=== PATIENT | female | born 1935 | race Caucasian/White ===

== ENCOUNTER 2017-08-01 09:26 | Observation (INO) ==
[2017-08-01] MEDS ORDERED: FUROSEMIDE 40 MG/4 ML VIAL IV STA (10:45)
[2017-08-01 11:01] LABS: Basophils % 0.4 % (0.0-0.8); Eosinophils # 0.3 10*3/uL (0.0-0.87); Eosinophils % 2.5 % (0.00-10.9); Hematocrit 39.1 VOL% (35.7-47.0); Hemoglobin 12.4 GM/DL (12.0-16.0); Immature Granulocytes % 0.5 %; Immature Granulocytes Absolute 0.05 #; Lymphocytes # 1.7 10*3/uL (1.4-4.0); Lymphocytes % 17.1 % (21.3-54.2); Mean Corpuscular HGB Conc 31.7 GM/DL (32-36); Mean Corpuscular Hemoglobin 25 PG (27-34); Mean Corpuscular Volume 79.5 FL (87-102); Mean Platelet Volume 11.7 FL (9.6-12.0); Monocytes # 0.6 10*3/uL (0.11-0.8); Monocytes % 5.6 % (1.7-12.7); Neutrophils # 7.5 10*3/uL (1.4-7.4); Neutrophils % 73.9 % (38.7-73.9); Platelet Count 266 T/CUMM (130-400); Red Blood Count 4.92 MC/CUMM (3.8-5.5); Red Cell Distribution Width 18.1 % (9.3-17.3); White Blood Count 10.1 T/CUMM (4-12)
[2017-08-01] MEDS ORDERED: FUROSEMIDE 40 MG/4 ML VIAL ONE (11:17)
[2017-08-01 11:28] LABS: Alanine Aminotransferase 17 U/L (13-56); Albumin 4.2 G/DL (3.4-5.0); Alkaline Phosphatase 88 U/L (45-117); Aspartate Amino Transferase 53 U/L (0-37); Blood Urea Nitrogen 22 MG/DL (7-18); Calcium 9.6 MG/DL (8.5-10.1); Glucose 99 MG/DL (74-106); Osmolality,Calculated 277.7 MOS/KG (273-304); Potassium 4.1 MMOL/L (3.5-5.1); Sodium 138 MMOL/L (136-145); Total Protein 7.9 G/DL (6.4-8.3); Troponin I Only < 0.015 NG/ML (0.00-0.045)
[2017-08-01] MEDS ORDERED: guaiFENesin/DM ER 600-30 MG TABLET PO PRN (13:19)
[2017-08-01] MEDS ORDERED: MAGNESIUM SULF RIDER 2 GM in PREMIX 1 EACH IV PRN (13:19)
[2017-08-01] MEDS ORDERED: diphenhydrAMINE CAP 25 MG CAPSULE PO PRN (13:19)
[2017-08-01] MEDS ORDERED: DOCUSATE SODIUM 100 MG CAPSULE PO PRN (13:19)
[2017-08-01] MEDS ORDERED: MAGNESIUM SULF RIDER 4 GM in PREMIX 1 EACH IV PRN (13:19)
[2017-08-01] MEDS ORDERED: ACETAMINOPHEN 325 MG TABLET PO PRN (13:19)
[2017-08-01] MEDS ORDERED: ONDANSETRON 4 MG/2 ML VIAL IV PRN (13:19)
[2017-08-01] MEDS ORDERED: ZALEPLON 5 MG CAPSULE PO PRN (13:19)
[2017-08-01] MEDS ORDERED: ENOXAPARIN 40 MG/0.4 ML SYRINGE SUBCUT SCH (13:30)
[2017-08-01 20:55] LABS: Apearance,Urine Clear (Clear); Bilirubin,Urine Negative (Negative); Blood, Urine Negative (Negative); Glucose,Urine (UA) Negative (Negative); Ketones,Urine Negative (Negative); Nitrite,Urine Negative (Negative); Protein,Urine Negative; Urine Color Yellow (Yellow)
[2017-08-01 20:56] LABS: Bacteria,Urine Few /HPF (Few); RBC,Urine 0-1 /HPF (0-4); Urine Urobilinogen < 1.0 EU/DL (0.2-1.0); WBC,Urine 0-2 /HPF (0-6)
[2017-08-01] MEDS ORDERED: NITROGLYCERIN SL 0.4 MG TABLET SL PRN (21:44)
[2017-08-01] MEDS ORDERED: TEMAZEPAM 15 MG CAPSULE PO PRN (21:44)
[2017-08-01] MEDS ORDERED: POLYETHYLENE GLYCOL POWDER 17 GM PACK PO PRN (21:44)
[2017-08-01] MEDS: SOTALOL 80 MG TABLET PO SCH (22:28)
[2017-08-02 03:59] LABS: Basophils % 0.4 % (0.0-0.8); Eosinophils # 0.2 10*3/uL (0.0-0.87); Eosinophils % 2.9 % (0.00-10.9); Hemoglobin 11.5 GM/DL (12.0-16.0); Immature Granulocytes % 0.7 %; Immature Granulocytes Absolute 0.05 #; Lymphocytes # 2.2 10*3/uL (1.4-4.0); Lymphocytes % 28.9 % (21.3-54.2); Mean Corpuscular HGB Conc 32.9 GM/DL (32-36); Mean Corpuscular Hemoglobin 25 PG (27-34); Mean Corpuscular Volume 76.6 FL (87-102); Mean Platelet Volume 12.4 FL (9.6-12.0); Monocytes # 0.6 10*3/uL (0.11-0.8); Monocytes % 8.2 % (1.7-12.7); Neutrophils # 4.5 10*3/uL (1.4-7.4); Neutrophils % 58.9 % (38.7-73.9); Platelet Count 222 T/CUMM (130-400); Red Blood Count 4.57 MC/CUMM (3.8-5.5); Red Cell Distribution Width 17.5 % (9.3-17.3); White Blood Count 7.7 T/CUMM (4-12)
[2017-08-02 04:29] LABS: Calcium 9.1 MG/DL (8.5-10.1); Osmolality,Calculated 279.5 MOS/KG (273-304); Potassium 4.1 MMOL/L (3.5-5.1)
[2017-08-02] MEDS ORDERED: LEVOTHYROXINE 125 MCG TABLET PO SCH (06:00)
[2017-08-02 08:04] VITALS: BP 135/76
[2017-08-02] MEDS: SOTALOL 80 MG TABLET PO SCH (08:48)
[2017-08-02] MEDS ORDERED: ASPIRIN EC 325 MG TABLET PO SCH (09:00)
[2017-08-02] MEDS ORDERED: CARBIDOPA/LEVODOPA 25-100 MG TABLET PO SCH (09:00)
[2017-08-02] MEDS ORDERED: FUROSEMIDE 80 MG TABLET PO SCH (09:00)
[2017-08-02] MEDS ORDERED: rOPINIRole 0.25 MG TABLET PO SCH (09:00)
[2017-08-02] MEDS ORDERED: ASCORBIC ACID 500 MG TABLET PO SCH (09:00)
[2017-08-02] MEDS ORDERED: LOSARTAN 50 MG TABLET PO SCH (09:00)
[2017-08-02] MEDS ORDERED: PANTOPRAZOLE 40 MG TABLET PO SCH (09:00)
[2017-08-02] MEDS ORDERED: CARVEDILOL 12.5 MG TABLET PO SCH (09:00)
[2017-08-02] MEDS ORDERED: POTASSIUM CHLORIDE 10 MEQ TABLET PO SCH (09:00)
[2017-08-02] MEDS ORDERED: FUROSEMIDE 40 MG TABLET PO SCH (16:00)
== END 2017-08-02 13:31 | disposition home or self-care (01) ==
LOC: N.EDINP 09:26 → N.ED 09:26 → N.TELEN 15:39
PROVIDERS: ADMIT Internal Medicine Clinical Cardiac Electrophysiology; ATTEND Internal Medicine Clinical Cardiac Electrophysiology

== ENCOUNTER 2017-10-10 13:10 | Observation (INO) ==
[2017-10-12 07:43] VITALS: BP 136/63
== END 2017-10-12 13:00 | disposition home or self-care (01) ==
LOC: N.EDINP 13:10 → N.ED 13:10 → N.EDINP 17:10 → N.TELEN 17:23
PROVIDERS: ADMIT Internal Medicine Interventional Cardiology; ATTEND Internal Medicine Interventional Cardiology